=== PATIENT | female | born 1955 ===

== ENCOUNTER 2024-04-01 11:12 | Inpatient (IN) | payer SELFPAY ==
[2024-04-01] MEDS ORDERED: VERAPAMIL 2.5 MG/ML 2 ML AMP ONE (11:29)
[2024-04-01] MEDS ORDERED: LIDOCAINE 1% INJ 10MG/ML (20 ML MDV) ONE (11:29)
[2024-04-01] MEDS: MIDAZOLAM 2 MG/2 ML VIAL IVP ONE (11:33)
[2024-04-01] MEDS ORDERED: HEPARIN SODIUM 1,000 UN/ML (10ML VL) ONE (11:34)
[2024-04-01] MEDS: HEPARIN SODIUM 1,000 UN/ML (10ML VL) IV ONE (11:35)
[2024-04-01] MEDS: VERAPAMIL SYRINGE (5 MG/10 ML) INTRAARTER ONE (11:35)
[2024-04-01] MEDS: IV FLUID CONTINUATION 1,000 ML IV ONE (11:38)
[2024-04-01] MEDS ORDERED: CLOPIDOGREL 75 MG TAB ONE (11:49)
[2024-04-01] MEDS: CLOPIDOGREL 75 MG TAB PO ONE (11:51)
[2024-04-01] MEDS: IOPAMIDOL-370 100ML BTL INJ ONE ×3 (12:08→12:47)
[2024-04-01] MEDS ORDERED: niCARdipine 25 MG/10 ML VIAL ONE (12:29)
[2024-04-01] MEDS: NITROGLYCERIN 1000MCG/10ML SYRINGE INTRACORON ONE (12:29)
[2024-04-01] MEDS: niCARdipine Syringe (1,000 mcg/10 mL) INTRACORON ONE (12:34)
[2024-04-01 16:05] VITALS: RESP 16
[2024-04-01] MEDS: SODIUM CHLORIDE 0.9% 1,000 ML IV SCH (18:34)
[2024-04-01] MEDS: METOPROLOL SUCCINATE (ER) 25 MG TAB.ER.24H PO SCH (20:18)
[2024-04-01] MEDS: lisinopriL 10 MG TAB PO SCH (20:20)
[2024-04-02 08:44] LABS: HCT 33.5 % (34.0-46.0); HGB 11.5 gm/dL (11.4-16.0); MCHC 34.3 g/dL (31.0-37.0); MCV 87.5 fL (80.0-100.0); Platelet Count 237 k/uL (150-450); RBC 3.82 m/uL (3.80-5.40); RDW 14.4 % (11.5-15.5); WBC 9.7 k/uL (3.8-10.6)
[2024-04-02 09:16] LABS: Potassium 3.5 mmol/L (3.5-5.1)
[2024-04-02 09:17] LABS: African American GFR (CKD) >90 (>60 ml/min/1.73 sqM); Anion Gap 4 mmol/L; Blood Urea Nitrogen 4 mg/dL (7-17); Calcium 8.2 mg/dL (8.4-10.2); Carbon Dioxide 23 mmol/L (22-30); Chloride 106 mmol/L (98-107); Glucose 177 mg/dL (74-99); Non-African American GFR(CKD) >90 (>60 ml/min/1.73 sqM); Sodium 133 mmol/L (137-145)
[2024-04-02] MEDS: ASPIRIN 81 MG PO SCH (09:52)
[2024-04-02] MEDS: ATORVASTATIN 80 MG TAB PO SCH (09:52)
[2024-04-02] MEDS: CLOPIDOGREL 75 MG TAB PO SCH (09:52)
[2024-04-02 10:05] VITALS: BP 121/73; PULSE 81; TEMP 98.4
--- NOTE | 2024-04-02 11:04 | CA ---
Transthoracic Echo Report Name: Teddy Gore Age: 68 Gender: F : 1955 Exam Date: 04/02/2024 08:45 Exam Location: [place] [facility] Ht (in): 64 Wt (lb): 147 Ordering Physician: Mike Worthington MD ([id number]) Attending/Referring Phys: Reagent Tender Helper Hailey Clifton RDCS Procedure CPT: Indications: evaluate LV function Cardiac Hx: 4 stents Technical Quality: Good Contrast 1: Total Dose (mL): Contrast 2: Total Dose (mL): MEASUREMENTS (Male / Female) Normal Values 2D ECHO LV Diastolic Diameter PLAX 5.4 cm 4.2 - 5.9 / 3.9 - 5.3 cm LV Systolic Diameter PLAX 4.1 cm IVS Diastolic Thickness 1.1 cm 0.6 - 1.0 / 0.6 - 0.9 cm LVPW Diastolic Thickness 1.2 cm 0.6 - 1.0 / 0.6 - 0.9 cm LV Relative Wall Thickness 0.4 RV Internal Dim ED PLAX 2.9 cm LA Systolic Diameter LX 3.7 cm 3.0 - 4.0 / 2.7 - 3.8 cm LV Diastolic Volume MOD BP 92.5 cm??? 67 - 155 / 56 - 104 cm??? LV Systolic Volume MOD BP 52.7 cm??? 22 - 58 / 19 - 49 cm??? LV Ejection Fraction MOD BP 43.1 % >= 55 % LV Diastolic Volume MOD 4C 90.9 cm??? LV Systolic Volume MOD 4C 45.4 cm??? LV Ejection Fraction MOD 4C 50.1 % LV Diastolic Length 4C 7.0 cm LV Systolic Length 4C 7.1 cm LV Diastolic Volume MOD 2C 90.5 cm??? LV Systolic Volume MOD 2C 63.7 cm??? LV Ejection Fraction MOD 2C 29.6 % LV Diastolic Length 2C 7.4 cm LV Systolic Length 2C 6.9 cm M-MODE Aortic Root Diameter MM 3.3 cm LA Systolic Diameter MM 2.0 cm LA Ao Ratio MM 0.6 DOPPLER AV Peak Velocity 140.1 cm/s AV Peak Gradient 7.8 mmHg AI Peak Velocity 365.0 cm/s AI Peak Gradient 53.3 mmHg AI Pressure Half Time 939.6 ms Mitral E Point Velocity 92.8 cm/s Mitral A Point Velocity 83.1 cm/s Mitral E to A Ratio 1.1 MV Deceleration Time 202.0 ms MV E' Velocity 5.4 cm/s Mitral E to MV E' Ratio 17.4 TR Peak Velocity 261.8 cm/s TR Peak Gradient 27.4 mmHg Right Ventricular Systolic Press 37.5 mmHg FINDINGS Left Ventricle Left ventricular ejection fraction is estimated at 35 %. Mild left ventricular dilatation. Mildly increased septal wall thickness. Mildly increased posterior wall thickness. Mildly increased left ventricular systolic volume. Moderately decreased left ventricular ejection fraction. Mid to distal septum akinesis. Apical anterior hypokinesis, apical inferior hypokinesi Right Ventricle Normal right ventricular size and function. Mild pulmonary hypertension. Right Atrium Normal right atrial size. No right atrial thrombus or mass seen. Left Atrium Normal left atrial size. No left atrial thrombus or mass present. Mitral Valve Structurally normal mitral valve. Ocme-at-zsynllru mitral regurgitation. Aortic Valve Trileaflet aortic valve. Mild aortic regurgitation. Tricuspid Valve Structurally normal tricuspid valve. Mild tricuspid regurgitation. Pulmonic Valve Pulmonic valve not well visualized. Pericardium No pericardial or pleural effusion. Aorta Normal size aortic root and proximal ascending aorta. CONCLUSIONS Large anterior apical septal and lateral area of severe hypokinesis/akinesis Only the basal portion of the LV in the inferior wall crystal well Severe LV dysfunction less than 35% No thrombus in the LV apex Previewed by: Dr. Huber Ashford MD (Electronically Signed) Final Date: 02 April 2024 11:03
--- NOTE | 2024-04-02 13:16 | P.PN ---
Subjective HISTORY OF PRESENT ILLNESS: Patient examined this morning at the bedside. Patient currently denies chest pain or pressure. She denies any shortness of breath. Vital signs are stable. Cardiogram completed revealing ejection fraction less than 35% with large anterior apical septal and lateral wall of hypokinesis. Only the basal portion of the LV in the inferior wall is crystal well. No thrombus noted. PHYSICAL EXAM: VITAL SIGNS: Reviewed. GENERAL: Well-developed in no acute distress. NECK: Supple. No JVD or thyromegaly LUNGS: Respirations even and unlabored. Lungs essentially clear to auscultation bilaterally. HEART: Regular rate and rhythm. S1 and S2 heard. EXTREMITIES: Normal range of motion. No clubbing or cyanosis. Peripheral pulses intact. No lower extremity edema ASSESSMENT: Non-STEMI, status post stenting to the LAD x 3 stents Coronary artery disease Ischemic cardiomyopathy PLAN: Continue dual antiplatelet therapy with aspirin and Plavix for 12 months Continue high intensity statin. LDL goal less than 70. Continue additional cardiac medications Patient is stable for discharge home today from a cardiac standpoint Patient provided with a CD copy of her cardiac catheterization as patient does not live in [place] and is going to establish care out of town. Nurse practitioner note has been reviewed by physician. Signing provider agrees with the documented findings, assessment, and plan of care documented by PRODUCTION PROOFREADER as a scribe. Objective - Vital Signs Vital signs: Vital Signs Temp 98.4 F 04/02/24 08:00 Pulse 81 04/02/24 08:00 Resp 16 04/02/24 08:00 BP 121/73 04/02/24 08:00 Pulse Ox 96 04/02/24 08:00 FiO2 Intake & Output 04/01/24 04/02/24 04/02/24 18:59 06:59 18:59 Intake Total 100 Output Total 800 0 Balance -700 0 Weight 66.8 kg Intake: IV 100 Output: Urine 800 0 Other: Voiding Method External Catheter External Catheter # Voids 1 - Labs CBC & Chem 7: 04/02/24 08:13 04/02/24 08:13 Labs: Abnormal Lab Results - Last 24 Hours (Table) 04/02/24 04/02/24 Range/Units 08:13 08:13 Hct 33.5 L (34.0-46.0) % Sodium 133 L (137-145) mmol/L BUN 4 L (7-17) mg/dL Creatinine 0.43 L (0.52-1.04) mg/dL Glucose 177 H (74-99) mg/dL Calcium 8.2 L (8.4-10.2) mg/dL
--- NOTE | 2024-04-02 23:22 | HP ---
HISTORY AND PHYSICAL CHIEF COMPLAINT: Acute NSTEMI. HISTORY OF PRESENT ILLNESS: This 68-year-old female was transferred from [facility] where she was admitted with chest pain and found to have triple-vessel coronary artery occlusions on catheterization and was transferred here for definitive management. Review of systems, past medical history, family history, personal and social histories can not be obtained because she does not speak Slovak. History was taken from the family. Apparently, she has hypertension and has been on 2 medications for that. Other than that she has no medical history including diabetes. PHYSICAL EXAMINATION: VITAL SIGNS: Normal. GENERAL: She is awake, alert. HEAD, EARS, EYES, NOSE, MOUTH AND THROAT: Normal. CHEST: Clear. CARDIAC: Normal with sinus rhythm and no S3 or S4. ABDOMEN: Soft, and nontender. EXTREMITIES: Normal. IMPRESSION: 1. Acute ST elevation myocardial infarction. 2. History of hypertension. PLAN: Cardiac cath with stenting of triple-vessel disease. MMODL / IJN: [id number] /
--- NOTE | 2024-04-02 23:28 | DS ---
DISCHARGE SUMMARY CHIEF COMPLAINT: Acute NSTEMI. HISTORY OF PRESENT ILLNESS AND PHYSICAL EXAMINATION: Details of this lady's history and physical can be found in the initial workup. LABORATORY STUDIES: While she was in the hospital, she had laboratory studies, details of which can be found in the laboratory section of her chart. COURSE IN THE HOSPITAL: After admission, she was placed on bedrest and taken to [facility], where she underwent stenting of her triple-vessel disease. Postoperatively, she did well and was stable and Cardiology felt she could be discharged next day. She will go home on an appropriate medication plan and her son-in-law was given instructions about the importance of taking medications, reducing salt intake, and rest with slow return to activity. Apparently, she is going to be traveling to [facility] where she has been visiting and then will go back to [place] in the next several weeks. FINAL DIAGNOSES: 1. Acute NSTEMI. 2. Congestive heart failure with reduced ejection fraction. 3. History of hypertension. OPERATIONS: Cardiac cath and stenting. CONSULTATIONS: Cardiology, she is improved. ARIANNE / NIKO: [id number] /
--- NOTE | 2024-04-07 08:23 | P.PCN ---
Date of Procedure: 04/01/24 Description of Procedure: Date of Service April 01, 2024 Indication for proceedure stuttering non-ST elevation AR with ongoing chest pain Procedure #1 PTCA and stenting of ostial, proximal and mid LAD with drug-eluting stents #2 PTCA and stenting of large second obtuse marginal branch of circumflex with drug-eluting stent #3 intravascular ultrasound of LAD #4 shockwave lithotripsy of ostial, proximal and mid LAD Performed by: Dr. Christelle Worthington Moderate conscious sedation time was 78 minutes. Patient was administered Versed. Oxygen saturation hemodynamics and EKG were monitored closely. Patient will be on aspirin and Plavix without interruption for 1 year. Clinical Information this is a 68-year-old lady who presented to [facility] with chest pain. She actually lives in [facility] and came across the bridge with a nearly 36 to 48 hours of chest discomfort and bilateral upper arm discomfort. She had a elevated troponin and was advised to cardiac catheterization which was performed from right radial approach at [facility] which revealed 100% ostial occlusion of LAD with a very small stump. She had 2 lesions in the circumflex one was a first obtuse marginal almost like a ramus with a 70% and a second obtuse marginal of about 95% stenosis. RCA was calcified relatively disease-free. Filling pressures were elevated. She was transferred here with a sheath in the right radial artery. Equipment used I used a 3.5 left Darci guide catheter, a super cross catheter with 45 degrees and a run-through long wire. 3 drug-eluting stents were placed in the LAD the first 1 was placed in the mid LAD 3.0 caliber 15 mm long. The proximal LAD stent was 3.25 caliber 8 mm long and ostial LAD stent was 3.5 caliber 8 mm long. All of these were Xience stents. The circumflex marginal was stented with a 2.75 caliber 12 mm long Xience stent. Predilatation was performed with a 2.5 caliber 12 mm long NC trek balloon and this was the same balloon for circumflex as well. I performed shockwave lithotripsy of the mid proximal and ostial LAD lesion at least 2 passes were used. I performed intravascular ultrasound of the LAD after the procedure and noted that there was full stent expansion with excellent apposition. There was however diffuse disease throughout the LAD of a noncritical degree. Description I used a 3.5 Curve left Darci type guide catheter of 6 Albanian. The super cross 45 degree catheter with a run-through wire was used to cross the total occlusion in the LAD. 2.5 caliber NC trek balloon was used to predilate in multiple areas. 3 stents were deployed in the mid proximal and ostial LAD. Intravascular ultrasound was performed which revealed good apposition and full expansion. I then used the same wire to cross the circumflex lesion and deployed a 2.75 caliber 15 mm long Xience stent with excellent angiographic result. At the end of the procedure patient was hemodynamically stable free of chest pain but there was sluggish flow in the distal apical portion of the LAD. Circumflex had an excellent result. Details were discussed with the patient, her and son-in-law. She will be discharged in the next 48 hours and will follow-up in [place]. She is a resident of [place] but living in [facility] to help her daughter who had a baby Result: Excellent angiographic result of the ostial, proximal and mid LAD with diffuse disease in rest of the system and somewhat sluggish flow towards the apex of the LAD. Circumflex marginal had an excellent angiographic result.
--- NOTE | 2024-04-07 15:18 | CDI ---
Documentation Clarification Form Date: 04/07/2024 03:00:26 PM From: Cornelia Oconnor Admit Date: 04/01/2024 11:12:00 AM Patient Name: Teddy Gore Visit Number: [id number] Discharge Date: 04/02/2024 03:20:00 PM ATTENTION: The Clinical Documentation Specialists (CDI) and [facility] Coding Staff appreciate your assistance in clarifying documentation. Please respond to the clarification below the line at the bottom and electronically sign. The CDI & [facility] Coding staff will review the response and follow-up if needed. Please note: Queries are made part of the Legal Health Record. If you have any questions, please contact the author of this message via ITS. Dr. Maxx Sinha Your patient has the documented diagnosis of CHF with reduced ejection fraction 04/02/24 in the Discharge Summary. Additional information regarding acuity of CHF is requested. History/Risk Factors: patient is a 68 year old female who has a history of congestive heart failure with reduced ejection fraction, hypertension, CAD, and Ischemic Cardiomyopathy. Clinical Indicators: She presented with chest pain and was diagnosed with NSTEMI. VS/Pulse OX: P: 85, RR 16, BP 119/78, O2 97% on room air BNP: not documented in our records Echocardiogram Results: large anterior apical septal and lateral area of severe hypokinesia/akinesis. Only the basal portion of the LV in the inferior wall crystal well. Severe LV dysfunction less than 35%. No thrombus in the LV apex Treatment: cardiac cath with stenting of triple vessel disease. 4 stents, IVUS, shockwave lithotripsy In your professional opinion, can you please clarify the acuity of CHF if known? [ ] Acute Systolic Heart Failure (reduced EF) [ ] Chronic Systolic Heart Failure (reduced EF) [ ] Acute on Chronic Systolic Heart Failure (reduced EF) [ ] Other, please specify [ ] Unable to determine MTDD
--- NOTE | 2024-05-12 01:15 | MISC ---
MISCELLANOUS REPORT Acute on chronic. MMODL / IJN: [id number] /
== END 2024-04-02 15:20 | disposition home or self-care (01) | DRG 323 ==
LOC: 3SCARD 11:12
PROVIDERS: ADMIT Family Medicine; ATTEND Family Medicine
PROC: B240ZZ3 Ultrasonography of Single Coronary Artery, Intravascular (ICD-10-PCS; principal; 2024-04-01 15:25)
PROC: 027137Z Dilation of Coronary Artery, Two Arteries with Four or More Drug-eluting Intraluminal Devices, Percutaneous Approach (ICD-10-PCS; principal; 2024-04-01 15:25)
PROC: 02F03ZZ Fragmentation in Coronary Artery, One Artery, Percutaneous Approach (ICD-10-PCS; principal; 2024-04-01 15:25)
DX: I21.4 Non-ST elevation (NSTEMI) myocardial infarction (principal); I50.23 Acute on chronic systolic (congestive) heart failure; I25.5 Ischemic cardiomyopathy; I11.0 Hypertensive heart disease with heart failure; I25.10 Atherosclerotic heart disease of native coronary artery without angina pectoris; Z79.899 Other long term (current) drug therapy
CPT/HCPCS: 80048; 85027; 92972; 92978; 93306